=== PATIENT | female | born 1970 | race Caucasian/White ===

== ENCOUNTER 2019-03-16 11:19 | Emergency (ER) | payer OTHER ==
[2019-03-16 13:27] LABS: URINE PH (Dip) POC 5.5 (5.0-8.5)
[2019-03-16 13:27] LABS: URINE BLOOD (Dip) POC Negative (NEGATIVE); URINE KETONES (Dip) POC 4+ (NEGATIVE); URINE LEUKOCYTE EST (Dip) POC Negative (NEGATIVE); URINE NITRITE (Dip) POC Positive (NEGATIVE); URINE TOTAL PROTEIN POC 1+ (NEGATIVE)
[2019-03-16] MEDS: KETOROLAC 30 MG INJ IM (13:42)
== END 2019-03-16 13:25 | disposition home or self-care (01) ==
LOC: FTE 11:19
DX: M47.896 Other spondylosis, lumbar region (principal); N39.0 Urinary tract infection, site not specified
CPT/HCPCS: 72100; 81003; 81025; 96372; 99284-25

== ENCOUNTER 2019-04-14 15:26 | Emergency (ER) | payer OTHER ==
[2019-04-14] MEDS: HYDROCODONE/APAP (5/325) TAB PO (16:48)
[2019-04-14 17:13] LABS: ADD UMIC YES; UR ASCORBIC ACID NEGATIVE (NEGATIVE); UR BILIRUBIN (Dip) NEGATIVE (NEGATIVE); UR BLOOD (Dip) NEGATIVE (NEGATIVE); UR CLARITY CLEAR (CLEAR); UR COLOR STRAW (YELLOW); UR GLUCOSE (Dip) 3+ mg/dL (NEGATIVE); UR KETONES (Dip) 1+ mg/dL (NEGATIVE); UR LEUKOCYTE ESTERASE (Dip) TRACE Leu/ul (NEGATIVE); UR NITRITE (Dip) NEGATIVE (NEGATIVE); UR RBC 1 /HPF (0-5); UR SPECIFIC GRAVITY (Dip) 1.037 (1.003-1.030); UR SQUAMOUS EPITHELIAL CELL FEW /HPF (FEW); UR TOTAL PROTEIN (Dip) NEGATIVE (NEGATIVE); UR UROBILINOGEN (Dip) NEGATIVE (NEGATIVE); UR WBC 10 /HPF (0-5)
[2019-04-14 19:20] LABS: ADD MAN DIFF? NO
[2019-04-14 19:23] LABS: BASOPHIL # 0.1 10^3/ul (0.0-0.1); BASOPHILS % 0.7 % (0.0-2.0); EOSINOPHILS # 0.2 10^3/ul (0.0-0.5); EOSINOPHILS % 1.9 % (0.0-7.0); HEMATOCRIT 36.9 % (37.0-47.0); HEMOGLOBIN 13.2 g/dl (12.0-16.0); LYMPHOCYTES # 2.8 10^3/ul (0.8-2.9); LYMPHOCYTES % 32.3 % (15.0-51.0); MEAN CORPUSCULAR HEMOGLOBIN 29.5 pg (29.0-33.0); MEAN CORPUSCULAR HGB CONC 35.8 g/dl (32.0-37.0); MEAN CORPUSCULAR VOLUME 82.4 fl (82.0-101.0); MEAN PLATELET VOLUME 10.3 fl (7.4-10.4); MONOCYTE # 0.5 10^3/ul (0.3-0.9); MONOCYTES % 5.2 % (0.0-11.0); NEUTROPHIL # 5.2 10^3/ul (1.6-7.5); NEUTROPHILS % 59.2 % (39.0-77.0); PLATELET COUNT 286 10^3/UL (140-415); RED BLOOD COUNT 4.48 10^6/ul (4.20-5.40); RED CELL DISTRIBUTION WIDTH 12.4 % (11.5-14.5)
[2019-04-14 19:23] LABS: WHITE BLOOD COUNT 8.8 10^3/ul (4.8-10.8)
[2019-04-14 19:45] LABS: ALANINE AMINOTRANSFERASE 32 IU/L (13-69); ALBUMIN 4.3 g/dl (3.3-4.9); ALBUMIN/GLOBULIN RATIO 1.43; ALKALINE PHOSPHATASE 77 IU/L (42-121); ANION GAP 10 (5-13); ASPARTATE AMINO TRANSFERASE 19 IU/L (15-46); BILIRUBIN,INDIRECT 0.7 mg/dl (0-1.1); BILIRUBIN,TOTAL 0.7 mg/dl (0.2-1.3); BLOOD UREA NITROGEN 14 mg/dl (7-20); CALCIUM 8.8 mg/dl (8.4-10.2); CARBON DIOXIDE 26 mmol/L (21-31); CHLORIDE 101 mmol/L (97-110); CREATININE 0.44 mg/dl (0.44-1.00); Estimated GFR > 60 mL/min (>60); GLUCOSE 243 mg/dl (70-220); POTASSIUM 3.8 mmol/L (3.5-5.1); SODIUM 137 mmol/L (135-144); TOTAL PROTEIN 7.3 g/dl (6.1-8.1)
[2019-04-14 20:15] LABS: CANCER ANTIGEN 125 5.7 U/ml (0.0-35.0)
[2019-04-14 20:20] LABS: CANCER ANTIGEN 19-9 25.1 U/ml (0.0-37.0)
== END 2019-04-14 21:55 | disposition home or self-care (01) ==
LOC: FTE 21:55
DX: M54.41 Lumbago with sciatica, right side (principal); R10.2 Pelvic and perineal pain; E11.9 Type 2 diabetes mellitus without complications
CPT/HCPCS: 36415; 76830; 76856; 80053; 81001; 81025; 85025; 86301; 86304; 86305; 99284-25

== ENCOUNTER → 2019-04-30 | Emergency (ER) | payer OTHER ==
[2019-04-30] MEDS: HYDROCODONE/APAP (5/325) TAB PO (21:30)
== END | disposition home or self-care (01) ==
LOC: FTE 20:05
DX: M25.571 Pain in right ankle and joints of right foot (principal)
CPT/HCPCS: 73590; 73610-RT; 81025; 99283-25